=== PATIENT | female | born 1955 ===

== ENCOUNTER 2023-11-06 09:39 | Outpatient (AMB) | payer MEDICARE, SELFPAY ==
--- NOTE | 2023-11-06 10:46 | MHC.OFFWIV ---
Intake Vital Signs 11/06/23 11:18 Height 5 ft 5 in Weight 262 lb BMI 43.6 BP 136/76 Blood Pressure Location Lt brachial Position Sitting Pulse 70 Pulse Source Pulse Oximeter Temp 97.9 F Temp Source Temporal Artery Scan Pulse Oximetry (%) 96 Oxygen Delivery Method Room Air Intake Visit Reasons: [employer] RT shoulder/LT knee pain due to fall Intake Note: pt is here today for rt shoulder lft knee pain due to fall started 1 week ago Patient Tobacco Use Status: Never used Tobacco Allergies No Known Allergies Allergy (Verified 11/06/23 11:22) Do you need a note to return to daycare/school/sports/work: No HPI [employer] RT shoulder/LT knee pain due to fall HPI Details 68 year old female patient presents today with report of muscle pain and spasms following a fall about one week ago. She states she tripped and fell onto the inner aspect of her left thigh, and she caught herself with her right arm. Since then she reports muscle tightness/soreness/spasms in her left inner/upper leg and also above her shoulder in her neck area. She denies any weakness and only reports mild pain. She is having these spasms particularly at nighttime and it is impacting sleep. [facility] Social History Patient Tobacco Use Status: Never used Tobacco Review of Systems Const All systems reviewed & are unremarkable except as noted in HPI and below Physical Exam Vital Signs: Last Vital Signs Temp 97.9 F 11/06/23 11:18 Pulse 70 11/06/23 11:18 BP 136/76 11/06/23 11:18 Pulse Ox 96 11/06/23 11:18 Oxygen Delivery Method Room Air 11/06/23 11:18 BMI result Body Mass Index 43.6 Const General: cooperative and no acute distress Nutritional Appearance: obese HEENT Head: Yes normal to inspection Neck Neck: Yes no lymphadenopathy Resp Effort & Inspection: normal respiratory effort Auscultation: clear to auscultation bilaterally Cardio Rate: regular rate Rhythm: regular rhythm Skin General skin exam: no rashes or lesions noted Neuro General: gait normal, no focal motor deficits and deep tendon reflexes 2+ bilaterally Extrem Other: Normal right shoulder ROM. No joint enlargement. She has some tenderness and tautness to her right trapezius/rhomboids. Left knee - normal ROM, no joint enlargement, no crepitus. No TTP over knee. No bruising or erythema. She has some tenderness with deep palpation to left distal quad insertion. Normal cap refill. No edema. Psych Appearance: grossly normal Mental Status: mental status grossly normal Speech and movement: Normal speech and movement present Assessment & Plan Assessment & Plan (1) Strain of right trapezius muscle: Code(s): S46.811A - Strain of other muscles, fascia and tendons at shoulder and upper arm level, right arm, initial encounter Qualifiers: Encounter type: initial encounter Qualified Code(s): S46.811A - Strain of other muscles, fascia and tendons at shoulder and upper arm level, right arm, initial encounter Plan: Symptoms and exam are consistent with myofascial injury/strain. We discussed anti-inflammatory use, and I am also going to start her on a low-dose muscle relaxer at bedtime to see if this provides any benefit for the spasms she is experiencing. We reviewed indications, use, possible side effects of medications. If she develops any worsening pain, or if symptoms do not begin to resolve with time and treatment, she should follow-up here or with PCP, and may benefit from physical therapy evaluation. She verbalizes understanding and agrees to plan. (2) Strain of left quadriceps: Code(s): S76.112A - Strain of left quadriceps muscle, fascia and tendon, initial encounter Qualifiers: Encounter type: initial encounter Qualified Code(s): S76.112A - Strain of left quadriceps muscle, fascia and tendon, initial encounter Plan: As above Medications: New meloxicam 15 mg PO DAILY 7 days 7 tabs 0RF S46.811A - Strain of other muscles, fascia and tendons at shoulder and upper arm level, right arm, initial encounter, S76.112A - Strain of left quadriceps muscle, fascia and tendon, initial encounter cyclobenzaprine 5 mg PO BEDTIME PRN 7 tabs 0RF muscle spasm S46.811A - Strain of other muscles, fascia and tendons at shoulder and upper arm level, right arm, initial encounter, S76.112A - Strain of left quadriceps muscle, fascia and tendon, initial encounter Coding Level of Care Code Est Pt Level 4 (94352) Diagnoses Strain of right trapezius muscle, initial encounter S46.811A Encounter type: initial encounter Strain of left quadriceps, initial encounter S76.112A Encounter type: initial encounter
[2023-11-06 11:18] VITALS: BP 136/76; PULSE 70; TEMP 36.6; O2SAT 96; BMI 43.6
== END 2023-11-06 11:55 | disposition home or self-care (01) ==
PROVIDERS: PCP Internal Medicine; Visit Provider Nurse Practitioner Family
DX: S46.811A Strain of other muscles, fascia and tendons at shoulder and upper arm level, right arm, initial encounter (principal); S76.112A Strain of left quadriceps muscle, fascia and tendon, initial encounter
CPT/HCPCS: 99214